=== PATIENT | male | born 1980 | race Caucasian/White ===

== ENCOUNTER 2016-11-15 14:56 | Emergency (ER) | payer BC ==
[2016-11-15 15:01] VITALS: TEMP 98.4
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
[2016-11-15 16:15] VITALS: BP 103/65; PULSE 84; RESP 16; O2SAT 94
== END 2016-11-15 16:14 | disposition home or self-care (01) ==
DX: S62.232A Other displaced fracture of base of first metacarpal bone, left hand, initial encounter for closed fracture (principal); V17.4XXA Pedal cycle driver injured in collision with fixed or stationary object in traffic accident, initial encounter; Y92.480 Sidewalk as the place of occurrence of the external cause; Y99.8 Other external cause status; Y93.55 Activity, bike riding